=== PATIENT | male | born 1975 | race Caucasian/White ===

== ENCOUNTER 2019-10-18 20:50 | Emergency (ER) | payer BC, SELFPAY ==
[2019-10-18 21:58] LABS: Absolute Lymphocytes (CBC) 3.8 K/uL (0.7-4.9); Basophils % 0.6 % (0-1.3); Hematocrit 47.6 % (39.6-49.0); Lymphocytes % 39.3 % (15.3-44.8); MPV 7.3 fL (7.6-11.3); RBC Red Blood Cell Count 5.52 M/uL (4.33-5.43)
[2019-10-18 21:59] LABS: Protime INR 1.18
[2019-10-18 22:16] LABS: ALT/SGPT 54 U/L (12-78); AST/SGOT 28 U/L (15-37); Albumin 3.7 g/dL (3.4-5.0); Alkaline Phosphatase 66 U/L (45-117); BUN Blood Urea Nitrogen 16 mg/dL (7-18); Bicarbonate 29 mmol/L (21-32); Bilirubin Direct < 0.1 mg/dL (0-0.2); Bilirubin Total 0.2 mg/dL (0.2-1.0); Glucose Level 105 mg/dL (74-106); Magnesium 2.3 mg/dL (1.8-2.4); NT PRO-BNP 23 pg/mL (<125); Potassium 3.6 mmol/L (3.5-5.1); Protein, Total 7.5 g/dL (6.4-8.2); Sodium Level 140 mmol/L (136-145); Troponin (Emerg Dept Use Only) < 0.02 ng/mL (0.0-0.045)
--- NOTE | 2019-10-18 22:25 | RAD REPORT ---
EXAM DESCRIPTION: RAD - Chest Single View - 10/18/2019 9:59 pm CLINICAL HISTORY: HTN Chest pain. COMPARISON: <Comparisons> FINDINGS: Portable technique limits examination quality. The lungs are grossly clear. The heart is normal in size. No displaced fractures. IMPRESSION: No acute intrathoracic process suspected.
--- NOTE | 2019-10-18 23:06 | EDPHYS ---
Physician Documentation [facility] Name: Patrice Jiménez Age: 44 yrs Sex: Male : 1975 Arrival Date: 10/18/2019 Time: 20:51 Bed 24 Private MD: ED Physician Jese Cardona HPI: 10/18 21:29 This 44 yrs old Male presents to ER via Ambulatory with complaints of High pm1 Blood Pressure. 21:29 The patient has elevated blood pressure and discovered this at home, with a home pm1 device. Onset: The symptoms/episode began/occurred today. Modifying factors: The symptoms are aggravated by discontinuation of meds, for over 1 year. 21:29 Associated signs and symptoms: Pertinent positives: difficulty with getting his words pm1 out last Friday, Pertinent negatives: chest pain, dizziness, dyspnea, headache, nausea, visual changes, vomiting, weakness. Severity of symptoms: in the emergency department the blood pressure is improved, His significant other gave him her hydrochlorothiazide 50 mg PO prior to arrival. The patient has not recently seen a physician, and does not have an established primary care provider. Historical: - Allergies: 21:07 Morphine; rv - Home Meds: 21:07 None [Active]; rv - PMHx: 21:07 Hypertension; rv - PSHx: 21:07 None; rv - Immunization history:: Adult Immunizations up to date. - Social history:: Smoking status: Patient/guardian denies using tobacco, never smoked. - Ebola Screening: : No symptoms or risks identified at this time. ROS: 21:29 Constitutional: Negative for fever, chills, and weight loss, Eyes: Negative for injury, pm1 pain, redness, and discharge, ENT: Negative for injury, pain, and discharge, Neck: Negative for injury, pain, and swelling, Cardiovascular: Negative for chest pain, palpitations, and edema, Respiratory: Negative for shortness of breath, cough, wheezing, and pleuritic chest pain, Abdomen/GI: Negative for abdominal pain, nausea, vomiting, diarrhea, and constipation, Back: Negative for injury and pain, : Negative for injury, bleeding, discharge, and swelling, MS/Extremity: Negative for injury and deformity, Skin: Negative for injury, rash, and discoloration, Neuro: Negative for headache, weakness, numbness, tingling, and seizure. Exam: 21:29 Constitutional: This is a well developed, well nourished patient who is awake, alert, pm1 and in no acute distress. Head/Face: Normocephalic, atraumatic. Eyes: Pupils equal round and reactive to light, extra-ocular motions intact. Lids and lashes normal. Conjunctiva and sclera are non-icteric and not injected. Cornea within normal limits. Periorbital areas with no swelling, redness, or edema. ENT: Nares patent. No nasal discharge, no septal abnormalities noted. Tympanic membranes are normal and external auditory canals are clear. Oropharynx with no redness, swelling, or masses, exudates, or evidence of obstruction, uvula midline. Mucous membranes moist. Neck: Trachea midline, no thyromegaly or masses palpated, and no cervical lymphadenopathy. Supple, full range of motion without nuchal rigidity, or vertebral point tenderness. No Meningismus. Chest/axilla: Normal chest wall appearance and motion. Nontender with no deformity. No lesions are appreciated. Cardiovascular: Regular rate and rhythm with a normal S1 and S2. No gallops, murmurs, or rubs. Normal PMI, no JVD. No pulse deficits. Respiratory: Lungs have equal breath sounds bilaterally, clear to auscultation and percussion. No rales, rhonchi or wheezes noted. No increased work of breathing, no retractions or nasal flaring. Abdomen/GI: Soft, non-tender, with normal bowel sounds. No distension or tympany. No guarding or rebound. No evidence of tenderness throughout. Back: No spinal tenderness. No costovertebral tenderness. Full range of motion. Skin: Warm, dry with normal turgor. Normal color with no rashes, no lesions, and no evidence of cellulitis. MS/ Extremity: Pulses equal, no cyanosis. Neurovascular intact. Full, normal range of motion. 21:29 Neuro: Orientation: is normal, Cranial nerves: CN II- XII are normal as tested, Cerebellar function: normal finger to nose testing, Motor: is normal, moves all fours, Sensation: is normal, no obvious gross deficits, Gait: is steady, at a normal pace, without difficulty. Vital Signs: 21:05 BP 193 / 122; Pulse 91; Resp 18; Temp 98.5; Pulse Ox 100% ; Weight 83.91 kg; Height 5 rv ft. 10 in. (177.80 cm); Pain 0/10; 21:48 BP 187 / 112; Pulse 91; Resp 16; Pulse Ox 100% on R/A; jp3 22:38 BP 169 / 107; Pulse 90; Resp 18; Pulse Ox 100% on R/A; mg2 23:23 BP 153 / 101; Pulse 89; Resp 18; Temp 98; Pulse Ox 100% on R/A; Pain 0/10; mg2 21:05 Body Mass Index 26.54 (83.91 kg, 177.80 cm) rv MDM: 21:23 Patient medically screened. pm1 23:05 Data reviewed: vital signs. Data interpreted: Pulse oximetry: on room air is 100 %. pm1 Interpretation: normal. Counseling: I had a detailed discussion with the patient and/or guardian regarding: the historical points, exam findings, and any diagnostic results supporting the discharge/admit diagnosis, lab results, radiology results, the need for outpatient follow up, to return to the emergency department if symptoms worsen or persist or if there are any questions or concerns that arise at home. 10/18 21:29 Order name: Basic Metabolic Panel; Complete Time: 22:46 pm1 10/18 21:29 Order name: CBC with Diff; Complete Time: 22:46 pm10/18 21:29 Order name: LFT's; Complete Time: 22:46 pm10/18 21:29 Order name: Magnesium; Complete Time: 22:46 pm10/18 21:29 Order name: NT PRO-BNP; Complete Time: 22:46 pm10/18 21:29 Order name: PT-INR; Complete Time: 22:46 pm10/18 21:29 Order name: CT Head Brain wo Cont pm1 10/18 21:29 Order name: Troponin (emerg Dept Use Only); Complete Time: 22:46 pm1 10/18 21:29 Order name: XRAY Chest (1 view); Complete Time: 22:46 pm1 10/18 21:29 Order name: EKG; Complete Time: 21:30 pm1 10/18 21:29 Order name: Cardiac monitoring; Complete Time: 21:30 pm10/18 21:29 Order name: EKG - Nurse/Tech; Complete Time: 21:30 pm1 10/18 21:29 Order name: IV Saline Lock; Complete Time: 22:13 pm1 10/18 22:17 Order name: Urine Dipstick--Ancillary (enter results) mw2 10/18 21:29 Order name: Labs collected and sent; Complete Time: 22:13 pm1 10/18 21:29 Order name: O2 Per Protocol; Complete Time: 21:30 pm1 10/18 21:29 Order name: O2 Sat Monitoring; Complete Time: 21:30 pm1 Administered Medications: No medications were administered Disposition: 10/19 03:41 Co-signature as Attending Physician, Jese Cardona MD I agree with the assessment and tw4 plan of care. Disposition: 10/18/19 23:05 Discharged to Home. Impression: Essential (primary) hypertension. - Condition is Stable. - Discharge Instructions: Hypertension, How to Take Your Blood Pressure, [id number], DASH Eating Plan, Managing Your Hypertension. - Prescriptions for Hydrochlorothiazide 25 mg Oral Tablet - take 1 tablet by ORAL route once daily .; 30 tablet. - Medication Reconciliation Form, Thank You Letter, Antibiotic Education, Prescription Opioid Use form. - Follow up: Emergency Department; When: As needed; Reason: Worsening of condition. Follow up: Private Physician; When: 2 - 3 days; Reason: Recheck today's complaints, Continuance of care, Re-evaluation by your physician. - Problem is new. - Symptoms have improved. Signatures: Dispatcher [employer] EDMS Willie Butler, SLEDGER SLEDGER pm1 Jese Cardona MD MD tw4 Herbert Agrawal RN RN mg2 Bradley Thomas RN RN rv Corrections: (The following items were deleted from the chart) 10/18 23:24 23:05 10/18/2019 23:05 Discharged to Home. Impression: Essential (primary) mg2 hypertension. Condition is Stable. Forms are Medication Reconciliation Form, Thank You Letter, Antibiotic Education, Prescription Opioid Use. Follow up: Emergency Department; When: As needed; Reason: Worsening of condition. Follow up: Private Physician; When: 2 - 3 days; Reason: Recheck today's complaints, Continuance of care, Re-evaluation by your physician. Problem is new. Symptoms have improved. pm1
--- NOTE | 2019-10-18 23:06 | ER ---
Nurse's Notes [facility] Name: Patrice Jiménez Age: 44 yrs Sex: Male : 1975 Arrival Date: 10/18/2019 Time: 20:51 Bed 24 Private MD: Diagnosis: Essential (primary) hypertension Presentation: 10/18 21:02 Presenting complaint: Patient states: I HAVE TROUBLE GETTING WORDS OUT LAST FRIDAY. rv I HAVE HIGH BLOOD PRESSURE FOR A LONG TIME. I AM SUPPOSED TO TAKE BLOOD PRESSURE PILL. Transition of care: patient was not received from another setting of care. Onset of symptoms was October 18, 2019 at 08:00. Risk Assessment: Do you want to hurt yourself or someone else? Patient reports no desire to harm self or others. Initial Sepsis Screen: Does the patient meet any 2 criteria? No. Patient's initial sepsis screen is negative. Does the patient have a suspected source of infection? No. Patient's initial sepsis screen is negative. Care prior to arrival: None. 21:02 Method Of Arrival: Ambulatory rv 21:02 Acuity: VANIA 3 rv Triage Assessment: 21:07 General: Appears in no apparent distress. comfortable, Behavior is calm, cooperative. rv Pain: Denies pain. Musculoskeletal: Denies weakness in OF EXTREMITIES. Historical: - Allergies: 21:07 Morphine; rv - Home Meds: 21:07 None [Active]; rv - PMHx: 21:07 Hypertension; rv - PSHx: 21:07 None; rv - Immunization history:: Adult Immunizations up to date. - Social history:: Smoking status: Patient/guardian denies using tobacco, never smoked. - Ebola Screening: : No symptoms or risks identified at this time. Screenin:13 Abuse screen: Denies threats or abuse. Denies injuries from another. Nutritional mg2 screening: No deficits noted. Tuberculosis screening: No symptoms or risk factors identified. Fall Risk IV access (20 points). Assessment: 22:38 General: Appears in no apparent distress. comfortable, Behavior is calm, cooperative. mg2 Neuro: Level of Consciousness is awake, alert, obeys commands, Oriented to person, place, time, situation. Cardiovascular: Capillary refill < 3 seconds Patient's skin is warm and dry. Respiratory: Airway is patent Respiratory effort is even, unlabored, Respiratory pattern is regular, symmetrical. GI: No signs and/or symptoms were reported involving the gastrointestinal system. : No signs and/or symptoms were reported regarding the genitourinary system. EENT: No signs and/or symptoms were reported regarding the EENT system. Derm: Skin is intact, is healthy with good turgor, Skin is pink, warm \T\ dry. normal. Musculoskeletal: Circulation, motion, and sensation intact. Capillary refill < 3 seconds. 23:24 Reassessment: Patient appears in no apparent distress at this time. Patient denies pain mg2 at this time. Patient states feeling better. Vital Signs: 21:05 BP 193 / 122; Pulse 91; Resp 18; Temp 98.5; Pulse Ox 100% ; Weight 83.91 kg; Height 5 rv ft. 10 in. (177.80 cm); Pain 0/10; 21:48 BP 187 / 112; Pulse 91; Resp 16; Pulse Ox 100% on R/A; jp3 22:38 BP 169 / 107; Pulse 90; Resp 18; Pulse Ox 100% on R/A; mg2 23:23 BP 153 / 101; Pulse 89; Resp 18; Temp 98; Pulse Ox 100% on R/A; Pain 0/10; mg2 21:05 Body Mass Index 26.54 (83.91 kg, 177.80 cm) rv ED Course: 20:51 Patient arrived in ED. ag3 21:04 Triage completed. rv 21:18 Willie Butler NP is PHCP. pm1 21:18 Jese Cardona MD is Attending Physician. pm1 21:40 Initial lab(s) drawn, by me, sent to lab. EKG done, by ED staff, reviewed by Willie Butler NP. Missed attempt(s): 20 gauge in right forearm. Bleeding controlled, band aid applied, catheter tip intact. 21:48 Inserted saline lock: 22 gauge in right forearm, using aseptic technique. Patient jp3 maintains SpO2 saturation greater than 95% on room air. 21:49 Bed in low position. Call light in reach. Side rails up X 1. Adult w/ patient. Warm jp3 blanket given. Verbal reassurance given. traffic monitor specialist on. Pulse ox on. NIBP on. 21:52 CT completed. Patient tolerated procedure well. Patient moved to radiology. vm2 21:57 CT Head Brain wo Cont In Process Unspecified. EDMS 21:58 XRAY Chest (1 view) In Process Unspecified. EDMS 22:13 Herbert Agrawal, RN is Primary Nurse. mg2 22:14 No provider procedures requiring assistance completed. mg2 22:14 Arm band placed on. mg2 23:23 IV discontinued, intact, bleeding controlled, No redness/swelling at site. Pressure mg2 dressing applied. Administered Medications: No medications were administered Outcome: 23:05 Discharge ordered by MD. pm1 23:23 Discharged to home ambulatory, with family. mg2 23:23 Condition: stable 23:23 Discharge instructions given to patient, family, Instructed on discharge instructions, follow up and referral plans. medication usage, Demonstrated understanding of instructions, follow-up care, medications, Prescriptions given X 1. 23:24 Patient left the ED. mg2 Signatures: Dispatcher [employer] EDViv Jimenez RN RN aj1 Willie Butler NP LEATHER COATER pm1 Christine Lao 2 Herbert Agrawal, CYNTHIA MARIE mg2 Bradley Thomas RN RN Prieto Caballero jp3 Mica Guan ag3 Corrections: (The following items were deleted from the chart) 21:41 21:34 Reassessment: Patient transported to CT via wheelchair aj1 aj1
[2019-10-18 23:49] LABS: Urine Blood NEGATIVE (NEG); Urine Glucose NEGATIVE (NEG); Urine Protein NEGATIVE (NEG); Urine Specific Gravity 1.025 (1.005-1.030)
[2019-10-18 23:55] VITALS: O2SAT 100
[2019-10-18 23:58] VITALS: BP 153/101; TEMP 98
--- NOTE | 2019-10-19 05:28 | EKG ---
Test Date: 2019-10-18 Test Time: 21:19:15 Supervisor Cd Area: GUNJAN MEASUREMENT RESULTS: Intervals: Rate: 87 SD: 150 QRSD: 78 QT: 368 QTc: 442 [place]: P: 60 SD: 150 QRS: 27 T: 32 INTERPRETIVE STATEMENTS: Normal sinus rhythm Normal ECG Compared to ECG 09/03/2016 15:55:02 Myocardial infarct finding no longer present Electronically Signed On 10-19-19 05:28:01 DUMPCART DRIVER by Osvaldo Hernandez
--- NOTE | 2019-10-19 10:57 | RAD REPORT ---
EXAM DESCRIPTION: Head Brain Wo Cont CLINICAL HISTORY: HEADACHE COMPARISON: None. TECHNIQUE: CT HEAD WITHOUT IV CONTRAST on 10/18/2019 9:29 PM TOOTH CUTTER This exam was performed according to our departmental dose-optimization program, which includes autom ated exposure control, adjustment of the mA and/or kV according to patient size and/or use of iterati ve reconstruction technique. FINDINGS: There is no acute hemorrhage, mass effect or midline shift. There is a small lacunar infar ct in the anterior left basal ganglia. There is no hydrocephalus. There is no significant volume loss for age. The calvarium is intact. Orbits and globes are unremarkable. The paranasal sinuses are clear. Mastoid air cells are clear. 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 No acute hemorrhage. Electronically signed by: Jey Blanco MD 10/18/2019 10:19 PM TOOTH CUTTER Due to temporary technical issues with the PACS/Fluency reporting system, reports are being signed by the in house radiologist as a courtesy to ensure prompt reporting. The interpreting radiologist is f ully responsible for the content of the report.
== END 2019-10-18 23:24 | disposition home or self-care (01) ==
LOC: ER 20:50
DX: I10 Essential (primary) hypertension (principal); Z88.5 Allergy status to narcotic agent
CPT/HCPCS: 36415; 70450; 71045; 80048; 80076; 81003; 83735; 83880; 84484; 85025; 85610; 93005; 99285